=== PATIENT | male | born 1970 | race African-American/Black ===

== ENCOUNTER 2016-08-22 20:15 | Emergency (ER) | payer SELFPAY ==
[2016-08-22] MEDS ORDERED: Acetaminophen/Codeine 30-300mg Tablet ONE (21:48)
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
== END 2016-08-22 21:50 | disposition home or self-care (01) ==
LOC: NAV ERS 20:15
DX: J11.1 Influenza due to unidentified influenza virus with other respiratory manifestations (principal); B34.9 Viral infection, unspecified; I10 Essential (primary) hypertension; J45.909 Unspecified asthma, uncomplicated
CPT/HCPCS: 99283

== ENCOUNTER 2016-09-09 06:21 | Emergency (ER) | payer OTHER, SELFPAY ==
[2016-09-09] MEDS ORDERED: Ondansetron ODT 4 MG TAB ONE (06:40)
[2016-09-09] MEDS ORDERED: cloNIDine HCl 0.1 MG TAB ONE ×3 (06:40→08:28)
[2016-09-09 07:34] LABS: ALT (SGPT) 20 U/L (0-55); AST (SGOT) 14 U/L (5-34); Alkaline Phosphatase 75 U/L (40-150); Anion Gap 12 mmol/L (10-20); BUN (Urea Nitrogen) 10 mg/dL (8.9-20.6); Bilirubin, Total 0.4 mg/dL (0.2-1.2); Calc. Creatinine Clearance 0 mL/min (70-130); Calcium 9.2 mg/dL (7.8-10.44); Carbon Dioxide 29 mmol/L (22-29); Chloride 103 mmol/L (98-107); Estimated GFR-MDRD 85; Globulin 3.1 g/dL (2.4-3.5)
[2016-09-09 07:38] LABS: Hematocrit 43.7 % (42.0-52.0); Mean Platelet Volume 7.8 fL (7.4-10.4); Red Blood Cell (RBC) Count 4.95 mill/uL (4.70-6.10); White Blood Cell (WBC) Count 6.9 thou/uL (4.8-10.8)
[2016-09-09 07:39] LABS: Neutrophil 55 % (42-75)
--- NOTE | 2016-09-09 07:43 | CT ---
PRELIMINARY REPORT/[facility]/EMERGENCY AFTER HOURS PROCEDURE: EXAM: CT Head Without Intravenous Contrast. CLINICAL HISTORY: 46 years old, male; Pain; Headache; Headache not specified; Additional info: Severe headache x sever al days, ran out of lisinopril, HTN TECHNIQUE: Axial computed tomography images of the head/brain without intravenous contrast. COMPARISON: No relevant prior studies available. FINDINGS: Brain: Unremarkable. No hemorrhage. No significant white matter disease. No edema. Ventricles: Unremarkable. No ventriculomegaly. Bones/joints: Unremarkable. No acute fracture. Soft tissues: Unremarkable. Sinuses: Unremarkable as visualized. No acute sinusitis. Mastoid air cells: Unremarkable as visualized. No mastoid effusion. IMPRESSION: Normal head/brain CT. Thank you for allowing us to participate in the care of your patient. Dictated and Authenticated by: Italo Joyner MD 09/09/2016 7:55 AM Central Time ([place] \T\ [place]) FINAL REPORT EMERGENCY AFTER HOURS CT HEAD NONCONTRAST: Date: 09/09/16 Time: 0651 hours HISTORY: Headache. FINDINGS: No comparison. There is no evidence of acute intracranial hemorrhage or infarct. The ventricles appear normal in si ze, shape, and position. There is no mass effect or shift of midline structures. IMPRESSION: No acute intracranial abnormalities are demonstrated on noncontrast CT head. POS: [facility]
[2016-09-09] MEDS ORDERED: Metoprolol Tartrate 50 MG TAB ONE (08:05)
== END 2016-09-09 08:58 ==
LOC: NAV ERS 06:21
DX: I16.0 Hypertensive urgency (principal); R51 Headache; I10 Essential (primary) hypertension; J45.909 Unspecified asthma, uncomplicated; F17.210 Nicotine dependence, cigarettes, uncomplicated; Z79.899 Other long term (current) drug therapy
CPT/HCPCS: 70450; 80053; 85025; 93005; 96372; J2270; Q0162

== ENCOUNTER 2016-09-11 23:25 | Emergency (ER) | payer OTHER, SELFPAY ==
[2016-09-11 23:50] LABS: #Basophils 0.1 thou/uL (0.0-0.2); #Eosinphils 0.1 thou/uL (0.0-0.7); #Lymphocytes 2.1 thou/uL (1.20-3.40); #Monocytes 0.9 thou/uL (0.11-0.59); #Neutrophils 3.7 thou/uL (1.40-6.50); %Eosinophils 1.9 % (0.0-10.0); %Lymphocytes 30.3 % (21.0-51.0); %Monocytes 13.5 % (0.0-10.0); Mean Platelet Volume 7.1 fL (7.4-10.4); Red Blood Cell (RBC) Count 4.98 mill/uL (4.70-6.10); White Blood Cell (WBC) Count 6.9 thou/uL (4.8-10.8)
[2016-09-11] MEDS ORDERED: Sodium Chloride 0.9% 500 ML ONE (23:51)
[2016-09-11] MEDS ORDERED: diphenhydrAMINE HCl 50 MG/ML 1 ML VIAL ONE (23:51)
[2016-09-11] MEDS ORDERED: Ketorolac Tromethamine 30 MG/ML VIAL ONE (23:51)
[2016-09-11] MEDS ORDERED: Metoclopramide HCl 10 MG/2 ML VIAL ONE (23:51)
--- NOTE | 2016-09-12 00:02 | RAD ---
PORTABLE CHEST: 09/11/16 COMPARISON: 10/31/13 study. HISTORY: Chest pain. Heart size is within normal limits for portable technique. The aorta is tortuous. The lungs are kofi r of infiltrates. IMPRESSION: No active intrathoracic disease. POS: [facility]
[2016-09-12 00:11] LABS: ALT (SGPT) 21 U/L (0-55); AST (SGOT) 16 U/L (5-34); Alkaline Phosphatase 80 U/L (40-150); Anion Gap 15 mmol/L (10-20); BUN (Urea Nitrogen) 11 mg/dL (8.9-20.6); Bilirubin, Total 0.2 mg/dL (0.2-1.2); Calc. Creatinine Clearance 0 mL/min (70-130); Carbon Dioxide 25 mmol/L (22-29); Chloride 104 mmol/L (98-107); Estimated GFR-MDRD 73; Globulin 3.2 g/dL (2.4-3.5); Protein, Total 7.3 g/dL (6.0-8.3)
[2016-09-12] MEDS ORDERED: Labetalol HCl 100 MG/20 ML VIAL ONE (00:25)
== END 2016-09-12 00:54 ==
LOC: NAV ERS 23:25
DX: I10 Essential (primary) hypertension (principal); J45.909 Unspecified asthma, uncomplicated; Z79.899 Other long term (current) drug therapy
CPT/HCPCS: 36415; 71010; 80053; 85025; 93005; 96361; 96374; 96375; J1200; J1885; J2765; J7050

== ENCOUNTER 2016-09-13 06:57 | Emergency (ER) | payer OTHER, SELFPAY ==
[2016-09-13] MEDS ORDERED: Metoprolol Tartrate 50 MG TAB ONE (07:11)
[2016-09-13] MEDS ORDERED: Fentanyl 100 MCG/2 ML VIAL ONE (07:16)
[2016-09-13 07:27] LABS: #Basophils 0.1 thou/uL (0.0-0.2); #Eosinphils 0.1 thou/uL (0.0-0.7); #Lymphocytes 1.7 thou/uL (1.20-3.40); #Monocytes 0.8 thou/uL (0.11-0.59); #Neutrophils 4.4 thou/uL (1.40-6.50); %Basophils 0.7 % (0.0-1.0); %Lymphocytes 23.9 % (21.0-51.0); %Monocytes 10.9 % (0.0-10.0); Hematocrit 43.3 % (42.0-52.0); Mean Platelet Volume 7.5 fL (7.4-10.4); White Blood Cell (WBC) Count 7.1 thou/uL (4.8-10.8)
[2016-09-13 07:49] LABS: Troponin I 0.026 ng/mL (< 0.028)
[2016-09-13 07:53] LABS: ALT (SGPT) 22 U/L (0-55); AST (SGOT) 16 U/L (5-34); Alkaline Phosphatase 73 U/L (40-150); Anion Gap 13 mmol/L (10-20); BUN (Urea Nitrogen) 10 mg/dL (8.9-20.6); Bilirubin, Total 0.2 mg/dL (0.2-1.2); Calc. Creatinine Clearance 0 mL/min (70-130); Calcium 8.8 mg/dL (7.8-10.44); Carbon Dioxide 25 mmol/L (22-29); Chloride 105 mmol/L (98-107); Estimated GFR-MDRD 90; Protein, Total 6.9 g/dL (6.0-8.3)
[2016-09-13 10:54] LABS: Troponin I 0.014 ng/mL (< 0.028)
== END 2016-09-13 11:10 ==
LOC: NAV ERS 06:57
DX: I16.0 Hypertensive urgency (principal); J45.909 Unspecified asthma, uncomplicated; F17.290 Nicotine dependence, other tobacco product, uncomplicated; Z79.899 Other long term (current) drug therapy
CPT/HCPCS: 36415; 80053; 82553; 84484; 85025; 93005; 96374; 96375; J0360; J3010

== ENCOUNTER 2016-11-16 10:21 | Emergency (ER) | payer SELFPAY ==
[2016-11-16] MEDS ORDERED: traMADol HCl 50 MG TAB ONE (10:54)
--- NOTE | 2016-11-16 12:00 | RAD ---
RIGHT THUMB 3 VIEWS: Date: 11/16/16 INDICATION: Injury with pain. FINDINGS: Slight osseous irregularity at the base of the tuft of the thumb distal phalanx. Overlying soft tiss ue prominence is present. No radiopaque foreign body. IMPRESSION: Slight cortical irregularity at the base of the thumb phalangeal tuft. This could relate to a nondis placed fracture given recent injury. As necessary, imaging follow-up may be obtained. POS: [facility]
== END 2016-11-16 11:56 | disposition home or self-care (01) ==
LOC: NAV ERS 10:21
DX: S62.524A Nondisplaced fracture of distal phalanx of right thumb, initial encounter for closed fracture (principal); J45.909 Unspecified asthma, uncomplicated; I10 Essential (primary) hypertension; F17.210 Nicotine dependence, cigarettes, uncomplicated; Z79.899 Other long term (current) drug therapy; X58.XXXA Exposure to other specified factors, initial encounter
CPT/HCPCS: 29125

== ENCOUNTER 2018-04-01 00:37 | Emergency (ER) | payer OTHER, SELFPAY ==
[2018-04-01 01:25] LABS: Bilirubin Negative (Negative); Blood, Urine Moderate (Negative); Clarity Clear (Clear); Glucose, Urine (Dipstick) Negative (Negative); Leukocyte Negative (Negative); Nitrite Negative (Negative); Protein, Urine (Dipstick) Negative (Neg-Trace)
[2018-04-01 01:27] LABS: Bacteria/HPF None Seen HPF (None Seen); Squamous Epithelial None Seen HPF (0-3); WBC/HPF 0-3 HPF (0-3)
[2018-04-01 01:31] LABS: ALT (SGPT) 17 U/L (8-55); AST (SGOT) 18 U/L (5-34); Alkaline Phosphatase 64 U/L (40-150); Anion Gap 11 mmol/L (10-20); BUN (Urea Nitrogen) 15 mg/dL (8.9-20.6); Bilirubin, Total 0.3 mg/dL (0.2-1.2); Calc. Creatinine Clearance 0 mL/min (70-130); Calcium 9.7 mg/dL (7.8-10.44); Carbon Dioxide 30 mmol/L (22-29); Chloride 102 mmol/L (98-107); Estimated GFR-MDRD 76; Globulin 3.2 g/dL (2.4-3.5); Glucose 111 mg/dL (70-105); Lipase 147 U/L (8-78); Potassium 4.4 mmol/L (3.5-5.1); Protein, Total 7.2 g/dL (6.0-8.3); Sodium 139 mmol/L (136-145)
[2018-04-01 01:35] LABS: Band 4 % (5-11); Eosinophils 3 % (0-10); Hemoglobin 14.4 g/dL (14.0-18.0); Lymphocytes 29 % (21-51); MDiff Complete? YES; Mean Corpuscular HGB CONC 31.2 g/dL (32.0-36.0); Mean Corpuscular Hemoglobin 28.6 pg (27.0-31.0); Mean Corpuscular Volume 91.9 fL (78.0-98.0); Mean Platelet Volume 7.5 fL (7.4-10.4); Monocytes 1 % (0-10); Neutrophil 63 % (42-75); PLT Morphology Comment Appears Adequate; Platelet Count 251 thou/uL (130-400); RBC Distribution Width 12.7 % (11.5-14.5); RBC Morphology Normal; Red Blood Cell (RBC) Count 5.01 mill/uL (4.70-6.10); White Blood Cell (WBC) Count 9.4 thou/uL (4.8-10.8)
[2018-04-01] MEDS ORDERED: Lisinopril 20 MG TAB ONE (01:53)
[2018-04-01] MEDS ORDERED: Amlodipine 10 MG TAB ONE (01:53)
[2018-04-01 02:22] LABS: Magnesium 2.2 mg/dL (1.6-2.6)
[2018-04-01 02:25] LABS: CKMB 1.3 ng/mL (0-6.6); Cardiac Risk 4.7 (Less than 4.5); Troponin I Less than 0.010 ng/mL (< 0.028)
[2018-04-01 04:24] LABS: Troponin I 0.011 ng/mL (< 0.028)
[2018-04-01] MEDS ORDERED: cloNIDine 0.1 MG TAB ONE (05:14)
[2018-04-01] MEDS ORDERED: Water For Inject, Bacteriostat 30 ML ONE (05:18)
[2018-04-01] MEDS ORDERED: Pantoprazole 40 MG VIAL ONE (05:18)
--- NOTE | 2018-04-01 07:53 | CT ---
PRELIMINARY REPORT/[facility]/EMERGENCY AFTER HOURS PROCEDURE: EXAM: CT Abdomen and Pelvis With Intravenous Contrast CLINICAL HISTORY: 47 years old, male; Pain; Abdominal pain; Acute; Patient HX: Abdominal pain x 3 days TECHNIQUE: Axial computed tomography images of the abdomen and pelvis with intravenous contrast. All CT scans at this facility use at least one of these dose optimization techniques: automated exposure control; mA and/or kV adjustment per patient size (includes targeted exams where dose is matched to clinical ind ication); or iterative reconstruction. Coronal and sagittal reformatted images were created and reviewed. CONTRAST: 96 mL of ISOVUE 370 administered intravenously. COMPARISON: No relevant prior studies available. FINDINGS: The lung bases are clear. Suspect mild inflammatory changes around the head and uncinate process of the pancreas, suspicious fo r mild acute pancreatitis. Please correlate with clinical and laboratory evaluation. No significant peripancreatic or retroperitoneal fluid. No pseudocyst. No significant pancreatic duct dilation. The pancreas appears to enhance homogeneously. No definite gallbladder abnormality by CT. Ultrasound could be more sensitive for detecting gallstone s, if clinically needed. No biliary tree dilation. Unremarkable appearance of the liver, spleen, kidneys, and adrenal glands Possibility of slightly thickened mucosa/wall in the distal antrum of the stomach. This is a nonspeci fic appearance, and could well be transient on CT, but could also represent evidence for gastritis o r peptic ulcer disease. Please correlate clinically. No free air, ascites, or bowel distention. No evidence for abdominal aortic aneurysm. No retroperitoneal adenopathy. CT pelvis: The appendix is visualized and appears normal. There are no CT findings to strongly suggest diverticulitis. No abnormal mass or fluid collection in the pelvis. IMPRESSION: Findings suspicious for acute pancreatitis, see above discussion. Unremarkable gallbladder by CT. Normal appendix. No free air or bowel distention. Possible thickened mucosa/wall in the distal stomach, see above discussion. Other findings discussed above. Thank you for allowing us to participate in the care of your patient. Dictated and Authenticated by: Sin Fall MD 04/01/2018 4:59 AM Central Time ([place] & [place]) FINAL REPORT ABDOMEN AND PELVIC CT SCAN WITH IV CONTRAST: Date: 04/01/18 Time: 0421 hours FINDINGS/IMPRESSION: Minimal peripancreatic fat stranding in region of uncinate process and head of pancreas, evidence for acute pancreatitis. No renal calculus or obstruction. Normal appearing appendix. Report in agreement with preliminary report given on-call by Kamer[facility]. POS: [facility]
[2018-04-01] MEDS ORDERED: Iopamidol 370 76% 100 ML VIAL ONE (09:00)
== END 2018-04-01 06:04 | disposition home or self-care, planned readmission (81) ==
LOC: NAV ERS 00:37
DX: K85.90 Acute pancreatitis without necrosis or infection, unspecified (principal); K29.70 Gastritis, unspecified, without bleeding; I10 Essential (primary) hypertension; J45.909 Unspecified asthma, uncomplicated; G47.30 Sleep apnea, unspecified; F17.210 Nicotine dependence, cigarettes, uncomplicated; Z79.899 Other long term (current) drug therapy
CPT/HCPCS: 74177; 80053; 80061; 81003; 81015; 82550; 82553; 83605; 83690; 83735; 84484; 85025; 93005; 94640; 94760; 96374; C9113; J7620

== ENCOUNTER 2018-04-22 02:17 | Emergency (ER) | payer OTHER ==
[2018-04-22] MEDS ORDERED: AMOXicillin 250 MG CAP ONE (02:42)
[2018-04-22] MEDS ORDERED: Acetaminophen/Codeine 30-300mg Tablet ONE ×2 (02:43)
== END 2018-04-22 03:02 | disposition home or self-care (01) ==
LOC: NAV ERS 02:17
DX: K02.9 Dental caries, unspecified (principal); J45.909 Unspecified asthma, uncomplicated; G47.33 Obstructive sleep apnea (adult) (pediatric); F17.210 Nicotine dependence, cigarettes, uncomplicated; I10 Essential (primary) hypertension; Z79.899 Other long term (current) drug therapy
CPT/HCPCS: 99283

== ENCOUNTER 2018-06-24 12:42 | Emergency (ER) | payer OTHER ==
[2018-06-24] MEDS ORDERED: Lidocaine 1% (PF) 30 ML VIAL ONE (12:59)
[2018-06-24] MEDS ORDERED: Benzocaine 20% Spray 60 ML CAN ONE (13:13)
== END 2018-06-24 12:50 | disposition home or self-care (01) ==
LOC: NAV ERS 12:42
DX: S61.211A Laceration without foreign body of left index finger without damage to nail, initial encounter (principal); G47.30 Sleep apnea, unspecified; J45.909 Unspecified asthma, uncomplicated; I10 Essential (primary) hypertension; F17.210 Nicotine dependence, cigarettes, uncomplicated; Z79.899 Other long term (current) drug therapy; W26.0XXA Contact with knife, initial encounter
CPT/HCPCS: 12001; J2001

== ENCOUNTER 2018-07-09 15:57 | Emergency (ER) | payer OTHER | END 2018-07-09 16:20 | disposition home or self-care (01) | LOC: NAV ERS 15:57 | DX: K02.9 Dental caries, unspecified (principal); I10 Essential (primary) hypertension; J45.909 Unspecified asthma, uncomplicated; G47.30 Sleep apnea, unspecified; F17.210 Nicotine dependence, cigarettes, uncomplicated; Z79.899 Other long term (current) drug therapy | CPT/HCPCS: 99282 ==

== ENCOUNTER 2018-07-12 14:02 | Outpatient (CLI) | payer OTHER ==
--- NOTE | 2018-07-12 15:02 | RAD ---
RIGHT TIBIA AND FIBULA TWO VIEWS: History: Disability evaluation. FINDINGS: Visualized knee appears unremarkable. The tibia and fibula are intact. There are mild degenerative ch anges at the tibiotalar joint. A tiny coiled wire foreign body is seen midcalf overlying the posterior cortex of the mid fibula. Thi s probably from a prior surgical procedure. Recommend clinical correlation. IMPRESSION: 1. Mild degenerative change at the ankle. 2. Tiny coiled wire foreign body overlying the posterior cortex of the mid fibula. Recommend clinical correlation. POS: [facility]
--- NOTE | 2018-07-12 15:26 | RAD ---
RIGHT SHOULDER TWO VIEWS: 07/12/2018 HISTORY: Pain. COMPARISON: None. FINDINGS: There is mild degenerative change of the right glenohumeral joint and right acromioclavicular joint. No widening of the AC or CC interspace. No acute fracture or dislocation. IMPRESSION: Mild degenerative joint disease. POS: [facility]
== END 2018-07-12 14:03 | disposition home or self-care (01) ==
LOC: NAV RAD 14:02
PROVIDERS: ATTEND Family Medicine
DX: Z02.71 Encounter for disability determination (principal); S29.011S Strain of muscle and tendon of front wall of thorax, sequela; M19.012 Primary osteoarthritis, left shoulder; Z87.828 Personal history of other (healed) physical injury and trauma; M19.071 Primary osteoarthritis, right ankle and foot; S80.851D Superficial foreign body, right lower leg, subsequent encounter

== ENCOUNTER 2018-12-03 13:54 | Emergency (ER) | payer OTHER ==
[2018-12-03] MEDS ORDERED: Ibuprofen 800 MG TAB ONE (14:20)
== END 2018-12-03 14:37 | disposition home or self-care (01) ==
LOC: NAV ERS 13:54
DX: S00.462A Insect bite (nonvenomous) of left ear, initial encounter (principal); K02.9 Dental caries, unspecified; I10 Essential (primary) hypertension; J45.909 Unspecified asthma, uncomplicated; G47.30 Sleep apnea, unspecified; F17.210 Nicotine dependence, cigarettes, uncomplicated; Z79.899 Other long term (current) drug therapy; W57.XXXA Bitten or stung by nonvenomous insect and other nonvenomous arthropods, initial encounter
CPT/HCPCS: 99282

== ENCOUNTER 2019-04-26 11:12 | Emergency (ER) | payer OTHER ==
--- NOTE | 2019-04-26 13:32 | RAD ---
Exam: Chest one view HISTORY:Cough and fever Comparison: 09/11/2016 FINDINGS: Lungs: The inferolateral left lung is partially obscured by overlying, superimposed structures and is partially excluded on the basis of patient positioning. There is a small grouping of radiopaque coils at the right lower chest. Cardiac silhouette: Normal size Pulmonary vessels: Normal Pleural Spaces: Clear Pneumothorax: None Osseous abnormalities: None of acuity. IMPRESSION: Incomplete evaluation of the inferolateral left chest. No consolidation otherwise identified.
== END 2019-04-26 13:50 | disposition home or self-care (01) ==
LOC: NAV ERS 11:12
DX: B34.9 Viral infection, unspecified (principal); I10 Essential (primary) hypertension; J45.909 Unspecified asthma, uncomplicated; G47.30 Sleep apnea, unspecified; F17.290 Nicotine dependence, other tobacco product, uncomplicated; Z79.899 Other long term (current) drug therapy
CPT/HCPCS: 71045; 87804

== ENCOUNTER 2019-09-27 20:51 | Emergency (ER) | payer OTHER | END 2019-09-27 21:25 | disposition home or self-care (01) | LOC: NAV ERS 20:51 | DX: S00.411A Abrasion of right ear, initial encounter (principal); K02.9 Dental caries, unspecified; I10 Essential (primary) hypertension; J45.909 Unspecified asthma, uncomplicated; G47.30 Sleep apnea, unspecified; F17.290 Nicotine dependence, other tobacco product, uncomplicated; Z79.899 Other long term (current) drug therapy; X58.XXXA Exposure to other specified factors, initial encounter | CPT/HCPCS: 99281 ==

== ENCOUNTER 2020-06-01 12:04 | Emergency (ER) | payer OTHER, SELFPAY ==
[2020-06-01] MEDS ORDERED: Naproxen 500 MG TAB ONE (12:39)
[2020-06-01] MEDS ORDERED: Acetaminophen 500 MG TAB ONE (12:39)
--- NOTE | 2020-06-01 12:59 | RAD ---
Radiograph right knee 4 views: 06/01/2020 HISTORY: 49-year-old male with right knee pain FINDINGS: Anterior soft tissue edema including along patellar tendon region and anterior suprapatellar region. No fracture or dislocation. Joint spaces are maintained without erosions. Tiny marginal osteophytes. Prominent enthesophyte at quadriceps tendon attachment site at superior pole of patella. IMPRESSION: 1.) Soft tissue edema at anterior knee. 2.) No fracture
--- NOTE | 2020-06-01 13:10 | CT ---
CT lumbar spine noncontrast: 06/01/2020 HISTORY: 49-year-old male with acute traumatic low back pain and lumbar radiculopathy. FINDINGS: There are 5 lumbar-type vertebrae. Vertebral body heights are maintained. No fracture lucency. Unrema rkable perivertebral spaces. At L4-5 there is moderate disc space narrowing, diffuse disc bulge, and central and bilateral paracen tral disc-osteophyte complex that protrudes into the spinal canal. Ligamentum flavum thickening, calcified on the left. High-grade central spinal canal stenosis. Mild bilateral neural foraminal sten osis. At L5-S1 there is moderate disc space narrowing and vacuum disc phenomenon. Diffuse disc bulge-osteop hytic bar complex. High-grade bilateral neural foraminal stenosis. Lateral recess stenosis bilaterally. Moderate central spinal canal stenosis. IMPRESSION: 1. No acute compression fracture. 2. Lumbar spondylosis with high-grade degenerative disc disease at L4-5 and L5-S1. 3. High-grade bilateral neural foraminal stenosis at L5-S1. 4. Central spinal canal stenosis at L4-5 and L5-S1.
== END 2020-06-01 14:02 | disposition home or self-care (01) ==
LOC: NAV ERS 12:04
DX: S80.01XA Contusion of right knee, initial encounter (principal); M51.87 Other intervertebral disc disorders, lumbosacral region; I10 Essential (primary) hypertension; J45.909 Unspecified asthma, uncomplicated; F17.290 Nicotine dependence, other tobacco product, uncomplicated; Z79.899 Other long term (current) drug therapy; W18.30XA Fall on same level, unspecified, initial encounter
CPT/HCPCS: 72131

== ENCOUNTER 2020-11-27 19:44 | Emergency (ER) | payer OTHER ==
[2020-11-27] MEDS ORDERED: Acetaminophen/Codeine 30-300mg Tablet ONE (20:09)
[2020-11-27] MEDS ORDERED: Ibuprofen 800 MG TAB ONE (20:09)
== END 2020-11-27 20:18 | disposition home or self-care (01) ==
LOC: NAV ERS 19:44
DX: S86.111A Strain of other muscle(s) and tendon(s) of posterior muscle group at lower leg level, right leg, initial encounter (principal); I10 Essential (primary) hypertension; F17.290 Nicotine dependence, other tobacco product, uncomplicated; Z79.899 Other long term (current) drug therapy; Y04.0XXA Assault by unarmed brawl or fight, initial encounter
CPT/HCPCS: 99283

== ENCOUNTER 2022-03-30 07:55 | Emergency (ER) | payer OTHER, SELFPAY ==
[2022-03-30] MEDS ORDERED: Mag-Al Plus 1200 MG/1200 MG/120 MG/30 ML UDCUP ONE (08:40)
[2022-03-30] MEDS ORDERED: Lidocaine Viscous Sol 2% 15 ml UD Cup ONE (08:40)
[2022-03-30] MEDS ORDERED: Pantoprazole 40 MG VIAL ONE (08:40)
[2022-03-30 08:46] LABS: #Basophils 0.1 thou/uL (0.0-0.2); #Eosinphils 0.2 thou/uL (0.0-0.7); #Lymphocytes 2.3 thou/uL (1.20-3.40); #Monocytes 0.7 thou/uL (0.11-0.59); #Neutrophils 4.8 thou/uL (1.40-6.50); %Basophils 1.2 % (0.0-1.0); %Eosinophils 2.1 % (0.0-10.0); %Lymphocytes 28.3 % (21.0-51.0); %Monocytes 8.9 % (0.0-10.0); %Neutrophils 59.5 % (42.0-75.0); Hemoglobin 13.3 g/dL (14.0-18.0); Mean Corpuscular HGB CONC 31.7 g/dL (32.0-36.0); Mean Corpuscular Hemoglobin 28.6 pg (27.0-31.0); Mean Corpuscular Volume 90.4 fL (78.0-98.0); Mean Platelet Volume 6.6 fL (7.4-10.4); Platelet Count 293 thou/uL (130-400); RBC Distribution Width 12.8 % (11.5-14.5); Red Blood Cell (RBC) Count 4.65 mill/uL (4.70-6.10); White Blood Cell (WBC) Count 8.1 thou/uL (4.8-10.8)
[2022-03-30 08:59] LABS: ALT (SGPT) 18 U/L (8-55); AST (SGOT) 15 U/L (5-34); Alkaline Phosphatase 57 U/L (40-110); Anion Gap 14 mmol/L (10-20); BUN (Urea Nitrogen) 12 mg/dL (8.4-25.7); Bilirubin, Total 0.4 mg/dL (0.2-1.2); Calc. Creatinine Clearance 0 mL/min (70-130); Calcium 9.4 mg/dL (7.8-10.44); Carbon Dioxide 27 mmol/L (22-29); Chloride 102 mmol/L (98-107); Estimated GFR 89; Globulin 2.8 g/dL (2.4-3.5); Glucose 112 mg/dL (70-105); Lipase 50 U/L (8-78); Potassium 3.5 mmol/L (3.5-5.1); Protein, Total 6.8 g/dL (6.0-8.3); Sodium 139 mmol/L (136-145)
== END 2022-03-30 10:00 | disposition home or self-care (01) ==
LOC: NAV ERS 07:55
DX: K29.00 Acute gastritis without bleeding (principal); I10 Essential (primary) hypertension; F17.290 Nicotine dependence, other tobacco product, uncomplicated; Z79.899 Other long term (current) drug therapy
CPT/HCPCS: 80053; 83690; 84484; 85025; 93005; 96374; C9113

== ENCOUNTER 2022-12-04 22:06 | Emergency (ER) | payer OTHER ==
[2022-12-04] MEDS ORDERED: Fluorescein Opthalmic Strip ONE (23:25)
[2022-12-04] MEDS ORDERED: Tetracaine 0.5% PF 4 ML BOT ONE (23:25)
== END 2022-12-04 23:45 | disposition home or self-care (01) ==
LOC: NAV ERS 22:06
DX: S05.01XA Injury of conjunctiva and corneal abrasion without foreign body, right eye, initial encounter (principal); I10 Essential (primary) hypertension; F17.290 Nicotine dependence, other tobacco product, uncomplicated; W26.8XXA Contact with other sharp object(s), not elsewhere classified, initial encounter
CPT/HCPCS: 99283

== ENCOUNTER 2024-02-21 12:22 | Emergency (ER) | payer BC, SELFPAY ==
[2024-02-21] MEDS ORDERED: Ibuprofen 800 MG TAB ONE (12:53)
== END 2024-02-21 13:05 | disposition home or self-care (01) ==
LOC: NAV ERS 12:22
DX: K08.89 Other specified disorders of teeth and supporting structures (principal); I10 Essential (primary) hypertension; F17.290 Nicotine dependence, other tobacco product, uncomplicated; Z79.899 Other long term (current) drug therapy
CPT/HCPCS: 99282

== ENCOUNTER 2024-04-10 01:49 | Emergency (ER) | payer BC ==
[2024-04-10 02:14] LABS: #Basophils 0.1 thou/uL (0.0-0.2); #Eosinphils 0.2 thou/uL (0.0-0.7); #Lymphocytes 2.7 thou/uL (1.20-3.40); #Monocytes 0.7 thou/uL (0.11-0.59); #Neutrophils 3.9 thou/uL (1.40-6.50); %Basophils 1.4 % (0.0-1.0); %Lymphocytes 35.3 % (21.0-51.0); %Monocytes 9.4 % (0.0-10.0); Hematocrit 40.7 % (42.0-52.0); Hemoglobin 13.5 g/dL (14.0-18.0); Mean Corpuscular HGB CONC 33.2 g/dL (32.0-36.0); Mean Corpuscular Hemoglobin 29.1 pg (27.0-31.0); Mean Corpuscular Volume 87.6 fl (78.0-98.0); Mean Platelet Volume 7.5 fL (7.4-10.4); Platelet Count 192 10x3/uL (130-400); RBC Distribution Width 12.3 % (11.5-14.5); Red Blood Cell (RBC) Count 4.64 mill/uL (4.70-6.10); White Blood Cell (WBC) Count 7.6 10x3/uL (4.8-10.8)
[2024-04-10] MEDS ORDERED: Ondansetron PF 4 MG/2 ML Vial ONE (02:25)
[2024-04-10] MEDS ORDERED: Mag-Al Plus 1200/1200/120 MG (30 mL) UDCUP ONE (02:25)
[2024-04-10] MEDS ORDERED: Pantoprazole 40 MG VIAL ONE (02:25)
[2024-04-10 02:29] LABS: ALT (SGPT) 15 U/L (8-55); AST (SGOT) 16 U/L (5-34); Albumin 3.6 g/dL (3.5-5.0); Alkaline Phosphatase 65 U/L (40-110); Anion Gap 13 mmol/L (10-20); BUN (Urea Nitrogen) 12 mg/dL (8.4-25.7); Bilirubin, Total 0.3 mg/dL (0.2-1.2); Calc. Creatinine Clearance 0 mL/min (70-130); Calcium 9.2 mg/dL (7.8-10.44); Carbon Dioxide 30 mmol/L (22-29); Chloride 102 mmol/L (98-107); Estimated GFR 79; Globulin 3.2 g/dL (2.4-3.5); Glucose 118 mg/dL (70-105); Potassium 3.6 mmol/L (3.5-5.1); Protein, Total 6.8 g/dL (6.0-8.3); Sodium 141 mmol/L (136-145); Troponin I Less than 0.010 ng/mL (< 0.028)
[2024-04-10 02:30] LABS: Lipase 55 U/L (8-78)
[2024-04-10] MEDS ORDERED: Amlodipine 5 MG TAB ONE (02:45)
[2024-04-10] MEDS ORDERED: Sucralfate 1 GM/10 ML UDCUP ONE (02:45)
[2024-04-10] MEDS ORDERED: cloNIDine 0.1 MG TAB ONE (03:05)
[2024-04-10 03:21] LABS: Bilirubin Negative (Negative); Blood, Urine Trace (Negative); Clarity Slightly Cloudy (Clear); Glucose, Urine (Dipstick) Negative (Negative); Ketone, Urine Negative (Negative); Leukocyte Negative (Negative); Nitrite Negative (Negative); Protein, Urine (Dipstick) Negative (Neg-Trace); pH, Urine 8.5 (5.0-9.0)
[2024-04-10 03:29] LABS: Bacteria/HPF Rare-Few HPF (None Seen); CAUTI Indications for Culture Dysuria,urgency,freq; WBC/HPF 0-3 HPF (0-3)
[2024-04-10 03:30] LABS: Urine Culture Reflex No No
== END 2024-04-10 03:26 | disposition home or self-care (01) ==
LOC: NAV ERS 01:49
DX: K29.00 Acute gastritis without bleeding (principal); I10 Essential (primary) hypertension; F17.290 Nicotine dependence, other tobacco product, uncomplicated
CPT/HCPCS: 80053; 81001; 83690; 84484; 85025; 93005; 96374; 96375; J2405; J2470

== ENCOUNTER 2024-06-27 14:18 | Emergency (ER) | payer BC ==
[2024-06-27] MEDS ORDERED: Acetaminophen 325 MG TAB ONE (15:58)
== END 2024-06-27 16:08 | disposition home or self-care (01) ==
LOC: NAV ERS 14:18
DX: B34.9 Viral infection, unspecified (principal); J45.909 Unspecified asthma, uncomplicated; I10 Essential (primary) hypertension; F17.290 Nicotine dependence, other tobacco product, uncomplicated; Z79.899 Other long term (current) drug therapy
CPT/HCPCS: 71046; 87428; 94664